=== PATIENT | female | born 1980 | race Caucasian/White ===

== ENCOUNTER 2020-04-24 09:47 | Day surgery (SDC) | payer BC ==
[~2020-04-24 09:47] MED LIST: DIPRIVAN 200 MG/20 ML IV ONE; Ketamine HCl 50 MG/ML ONE; Versed 2 MG/2 ML Injection ONE
[2020-04-24] MEDS ORDERED: LIDOCAINE HCL 2% 100 MG/5 ML IJ ONE (09:48)
[2020-04-24] MEDS ORDERED: Decadron 4 MG INJ IV ONE (09:48)
--- NOTE | 2020-04-24 13:27 | XRAY ---
Indication: Right C2-C4 MBB. Intraoperative fluoroscopy was provided for 32 seconds. 2 digital spot images submitted for interpretation demonstrates posterior needle tips projecting over the expected right C2-C4 nerve roots. Correlate with intraoperative findings/report.
--- NOTE | 2020-04-24 13:31 | XRAY ---
32 seconds of fluoroscopy was used in surgery for a right C2-C3 and C3-C4 MBB.
[2020-04-24] MEDS ORDERED: Lactated Ringers 1,000 ML IV ONE (15:50)
== END 2020-04-24 12:05 | disposition home or self-care (01) ==
LOC: SDC-PAIN 09:47
PROVIDERS: ATTEND Psychiatry & Neurology Pain Medicine
DX: M47.812 Spondylosis without myelopathy or radiculopathy, cervical region (principal); F41.8 Other specified anxiety disorders; Z79.899 Other long term (current) drug therapy
CPT/HCPCS: 64490; 64491; 72020; 77002; J1100; J2250; J2704

== ENCOUNTER 2020-05-08 07:48 | Day surgery (SDC) | payer BC ==
[~2020-05-08 07:48] MED LIST changes: -Versed 2 MG/2 ML Injection ONE
[2020-05-08] MEDS ORDERED: Lactated Ringers 1,000 ML IV ONE (07:49)
[2020-05-08] MEDS ORDERED: Xylocaine-Mpf 2% 5 Ml Vial IJ ONE (07:49)
[2020-05-08] MEDS ORDERED: Depo-Medrol 40 MG/ML IM ONE (07:49)
--- NOTE | 2020-05-08 10:44 | XRAY ---
Indication: Bilateral T7-T10 MBB. Intraoperative fluoroscopy was provided for 27 seconds. Single digital spot image submitted for interpretation demonstrates posterior needle tips projecting over the expected left and right T7-T10 nerve roots. Correlate with intraoperative findings/report.
--- NOTE | 2020-05-08 10:46 | XRAY ---
27 seconds fluoroscopy time in surgery for bilateral T7-T10 MBB.
== END 2020-05-08 10:15 | disposition home or self-care (01) ==
LOC: SDC-PAIN 07:48
PROVIDERS: ATTEND Psychiatry & Neurology Pain Medicine
DX: M47.814 Spondylosis without myelopathy or radiculopathy, thoracic region (principal); E88.81 Metabolic syndrome and other insulin resistance; F41.8 Other specified anxiety disorders; Z79.899 Other long term (current) drug therapy
CPT/HCPCS: 64490; 64491; 64492; 72020; 77002; 82962; J1030; J2704